=== PATIENT | male | born 1995 | race Two or more races ===

== ENCOUNTER 2016-11-10 15:13 | Emergency (ER) | payer SELFPAY ==
[2016-11-10 15:19] VITALS: BP 128/56; PULSE 73; TEMP 98.8; BMI 32.6
== END 2016-11-10 17:49 | disposition left against medical advice (07) ==
LOC: JER 15:13
DX: Z53.21 Procedure and treatment not carried out due to patient leaving prior to being seen by health care provider (principal)
CPT/HCPCS: 99281-25

== ENCOUNTER 2016-11-11 07:22 | Inpatient (IN) | payer OTHER ==
[2016-11-11 07:43] VITALS: BMI 30.5
--- NOTE | 2016-11-11 08:09 | PDOC ---
History of Present Illness - General Chief Complaint: Pain, Acute Stated Complaint: ABD PAIN Time Seen by Provider: 11/11/16 07:59 History Source: Patient Exam Limitations: No Limitations - History of Present Illness Initial Comments: CHIEF COMPLAINT: 21 y/o afebrile male with no significant PMH c/o abdominal pain and diarrhea for the past 1 week. HISTORY OF PRESENT ILLNESS: The patient states the pain is constant but is worse with bowel movements. He denies fever, chills, n/v, CP, SOB, back pain, hematuria, dysuria. He hasn't taken anything for pain and doesn't have a doctor. Vital signs on arrival are within normal limits. REVIEW OF SYSTEMS: GENERAL/CONSTITUTIONAL: No fever/chills. No weakness. No weight change. HEAD, EYES, EARS, NOSE AND THROAT: No change in vision. No ear pain or discharge. No sore throat. CARDIOVASCULAR: No chest pain or shortness of breath. RESPIRATORY: No cough, wheezing, or hemoptysis. GASTROINTESTINAL: +abdominal pain and diarrhea. No nausea, vomiting. GENITOURINARY: No dysuria, frequency, or change in urination. MUSCULOSKELETAL: No joint or muscle swelling or pain. No neck or back pain. SKIN: No rash or easy bruising. NEUROLOGIC: No headache, vertigo, loss of consciousness, or loss of sensation. PHYSICAL EXAM: GENERAL: The patient is awake, alert, and fully oriented, in moderate discomfort , lying flat and holding the right side of his abdomen. HEAD: Normal with no signs of trauma. ENT: Pupils equal, round and reactive to light, extraocular movements intact, sclera anicteric, conjunctiva clear. Neck supple. LUNGS: Clear to auscultation bilaterally. Normal excursion. No respiratory distress or use of accessory muscles. CV: RRR, S1/S2, no MRG. Cap refill < 2 sec. ABDOMEN: Soft, non-distended, with exquisite TTP of RLQ with passive guarding. No rebound. +Psoas and obturator signs. Pain reproduced in RLQ when the patient jumps up and down. EXTREMITIES: Normal range of motion, no edema. NEUROLOGICAL: Normal speech, normal gait. CN II-XII grossly intact. PSYCH: Normal mood, normal affect. SKIN: Warm, dry, normal turgor, no rashes or lesions noted. Past History - Past Medical History Allergies/Adverse Reactions: Allergies Allergy/AdvReac Type Severity Reaction Status Date / Time No Known Allergies Allergy Verified 11/11/16 07:39 Home Medications: Ambulatory Orders NK [No Known Home Medication] 11/11/16 Other medical history: PT DENIES MEDICAL HX - Psycho/Social/Smoking Cessation Hx Anxiety: No Suicidal Ideation: No Smoking History: Never smoked Have you smoked in the past 12 months: No Hx Alcohol Use: Yes ("sometimes") Drug/Substance Use Hx: No Substance Use Type: None *Physical Exam - Vital Signs Last Vital Signs Temp Pulse Resp BP Pulse Ox 97.9 F 63 18 154/69 99 11/11/16 07:36 11/11/16 07:36 11/11/16 07:36 11/11/16 07:36 11/11/16 07:36 ED Treatment Course - LABORATORY CBC & Chemistry Diagram: 11/11/16 08:39 11/11/16 08:39 Medical Decision Making - Medical Decision Making A/P: 21 y/o male with RLQ pain and diarrhea for 1 week. Will r/o appendicitis. Plan is as follows: 1. Labs 2. UA 3. Insert IV 4. IV fluids 5. IV ofirmev 6. CT scan abd/pelvis CT scan abd/pelvis IMPRESSION: Acute appendicitis labs unremarkable UA normal Ordered IV Unasyn Spoke with the patient to inform him of the diagnosis and plan Spoke with Dr. Siddiqui who accepts admission to the hospital. Paged Dr. Arellano for surgery. Spoke with Dr. Arellano and he states he will come in today and try to take him to the ER today. *DC/Admit/Observation/Transfer Diagnosis at time of Disposition: Acute appendicitis Qualifiers: Acute appendicitis type: with localized peritonitis Qualified Code(s): K35.3 - Acute appendicitis with localized peritonitis - Discharge Dispostion Admit: Yes
[2016-11-11] MEDS ORDERED: SODIUM CHLORIDE 1,000 ML IV STA (08:15)
[2016-11-11] MEDS ORDERED: ACETAMINOPHEN 1000 MG/100 ML VIAL (NON FORMULARY) IVPB ONE (08:15)
[2016-11-11] MEDS ORDERED: ACETAMINOPHEN INJECTION 100 ML IVPB ONE (08:51)
[2016-11-11 09:22] LABS: BASOPHIL 0.4 % (0-2.0); EOSINOPHIL 0.6 % (0-4.5); MCHC 33.5 g/dl (32.0-35.9); MEAN CELL VOLUME 83.8 fl (80-96); MEAN PLT VOLUME 9.5 fl (7.5-11.1); NEUTROPHILS 70.6 % (42.8-82.8); PLATELET COUNT 179 K/MM3 (134-434); RDW 13.2 % (11.9-15.9); WHITE BLOOD COUNT 10.3 K/mm3 (4.0-10.0)
[2016-11-11 09:26] LABS: ALBUMIN 3.8 g/dl (3.4-5.0); ALK PHOS 125 U/L (45-117); ANION GAP 10 (8-16); BILIRUBIN,TOTAL 0.6 mg/dL (0.2-1.0); CALCIUM 8.7 mg/dL (8.5-10.1); CO2 27 mmol/L (21-32); COCKROFT - GAULT 196.24; CREATININE 0.8 mg/dL (0.7-1.3); GLUCOSE,RANDOM 87 mg/dL (74-106); SGOT/AST 18 U/L (15-37); SGPT/ALT 29 U/L (12-78); TOT PROT 7.3 g/dl (6.4-8.2)
[2016-11-11 09:47] LABS: URINE APPEARANCE CLEAR; URINE BILIRUBIN NEGATIVE (NEGATIVE); URINE BLOOD NEGATIVE (NEGATIVE); URINE COLOR STRAW; URINE GLUCOSE (UA) NEGATIVE (NEGATIVE); URINE KETONE NEGATIVE (NEGATIVE); URINE LEUK ESTERASE NEGATIVE (NEGATIVE); URINE NITRITE NEGATIVE (NEGATIVE); URINE PROTEIN NEGATIVE (NEGATIVE); URINE UROBILINOGEN NEGATIVE E.U./dl (0.2-1.0)
[2016-11-11 10:10] LABS: INR 1.11 (0.82-1.09); PROTHROMBIN TIME (PATIENT) 12.2 SEC (9.98-11.88)
[2016-11-11] MEDS ORDERED: AMPICILLIN NA/SULBACTAM NA 3 GM in SODIUM CHLORIDE 100 ML IVPB ONE (12:57)
[2016-11-11] MEDS ORDERED: ONDANSETRON 4 MG/2 ML VIAL IVPB PRN ×2 (13:51→16:56)
[2016-11-11] MEDS ORDERED: HYDROmorphone HCL CARPU-JECT 1 MG/1 ML DISP.SYRIN IVPB PRN (13:51)
[2016-11-11] MEDS ORDERED: D5-1/2NS+20 MEQ KCL - 1,000 ML IV SCH (14:00)
[2016-11-11] MEDS ORDERED: MIDAZOLAM HCL 2 MG/2 ML SINGLE DOSE VIAL ONE (15:04)
[2016-11-11] MEDS ORDERED: LIDOCAINE HCL/PF 2% SDV 5ML VIAL ONE (15:04)
[2016-11-11] MEDS ORDERED: PROPOFOL 20 ML ONE (15:04)
[2016-11-11] MEDS ORDERED: ROCURONIUM BROMIDE 50 MG/5 ML VIAL ONE (15:04)
[2016-11-11] MEDS ORDERED: SENNOSIDES 8.6MG TABLET (FP) PO PRN (15:11)
[2016-11-11] MEDS ORDERED: BUPIVACAINE HCL/PF 0.5% (5MG/ML) 10 ML VIAL ONE (15:12)
--- NOTE | 2016-11-11 15:19 | HP ---
CHIEF COMPLAINT: LLQ abdominal pain PCP: HISTORY OF PRESENT ILLNESS: This is a 21 year old male with no significant past medical history, presents with a one week history of RLQ abdominal pain and diarrhea x 1day. Denies fever , chills, n.v. CT notable for acute appendicitis Denies surgical history Family history : MOther diabetes and hypertension Denies smoking , drinking, alcohol ER course was notable for: (1) CT acute appendicits (2)wbc elevated (3) Recent Travel: no PAST MEDICAL HISTORY: none PAST SURGICAL HISTORY: no Social History: Smoking:no Alcohol:no Drugs: no Family History:MOther diabetes, htn Allergies No Known Allergies Allergy (Verified 11/11/16 07:39) HOME MEDICATIONS: Home Medications Medication Instructions Recorded NK [No Known Home Medication] 11/11/16 REVIEW OF SYSTEMS CONSTITUTIONAL: Absent: fever, chills, diaphoresis, generalized weakness, malaise, loss of appetite, weight change HEENT: Absent: rhinorrhea, nasal congestion, throat pain, throat swelling, difficulty swallowing, mouth swelling, ear pain, eye pain, visual changes CARDIOVASCULAR: Absent: chest pain, syncope, palpitations, irregular heart rate, lightheadedness , peripheral edema RESPIRATORY: Absent: cough, shortness of breath, dyspnea with exertion, orthopnea, wheezing, stridor, hemoptysis GASTROINTESTINAL: Positive: abdominal pain, diarrhea Absent: abdominal distension, nausea, vomiting, constipation, melena, hematochezia GENITOURINARY: Absent: dysuria, frequency, urgency, hesitancy, hematuria, flank pain, genital pain MUSCULOSKELETAL: Absent: myalgia, arthralgia, joint swelling, back pain, neck pain SKIN: Absent: rash, itching, pallor HEMATOLOGIC/IMMUNOLOGIC: Absent: easy bleeding, easy bruising, lymphadenopathy, frequent infections ENDOCRINE: Absent: unexplained weight gain, unexplained weight loss, heat intolerance, cold intolerance NEUROLOGIC: Absent: headache, focal weakness or paresthesias, dizziness, unsteady gait, seizure, mental status changes, bladder or bowel incontinence PSYCHIATRIC: Absent: anxiety, depression, suicidal or homicidal ideation, hallucinations. PHYSICAL EXAMINATION Vital Signs - 24 hr 11/11/16 14:55 Temperature 98.9 F Pulse Rate [ 77 Right] Respiratory 20 Rate Blood Pressure 139/79 [Left Arm] O2 Sat by Pulse 98 Oximetry (%) GENERAL: Awake, alert, and fully oriented, in no acute distress. HEAD: Normal with no signs of trauma. EYES: Pupils equal, round and reactive to light, extraocular movements intact, sclera anicteric, conjunctiva clear. No lid lag. EARS, NOSE, THROAT: Ears normal, nares patent, oropharynx clear without exudates. Moist mucous membranes. NECK: Normal range of motion, supple without lymphadenopathy, JVD, or masses. LUNGS: Breath sounds equal, clear to auscultation bilaterally. No wheezes, and no crackles. No accessory muscle use. HEART: Regular rate and rhythm, normal S1 and S2 without murmur, rub or gallop. ABDOMEN: Soft, nontender, not distended, normoactive bowel sounds, no guarding, no rebound, no masses. No hepatomegaly or splenomegaly. MUSCULOSKELETAL: Normal range of motion at all joints. No bony deformities or tenderness. No CVA tenderness. UPPER EXTREMITIES: 2+ pulses, warm, well-perfused. No cyanosis. No clubbing. No peripheral edema. LOWER EXTREMITIES: 2+ pulses, warm, well-perfused. No calf tenderness. No peripheral edema. NEUROLOGICAL: Cranial nerves II-XII intact. Normal speech. Normal gait. PSYCHIATRIC: Cooperative. Good eye contact. Appropriate mood and affect. SKIN: Warm, dry, normal turgor, no rashes or lesions noted, normal capillary refill. CT abdomen and pelvis: IMPRESSION: Findings consistent with acute appendicitis without evidence of extraluminal air or abscess formation. There is significant stranding/edema around the appendiceal tip with a small amount of free fluid in the right hemipelvis. Apparent thickening of the urinary bladder likely due to inadequate distention. Probable scattered diverticula in the colon without evidence of acute diverticulitis. ASSESSMENT/PLAN: This is a 21 yea old male with no PMHx, presents towth one weel hx RLQ pain and diarrhea x 1 day. Admitted for acute appendicitis. #acute appendicitis: -taken to OR -Dr. Arellano doing surgery -was npo -IVF -pain controlled FEN: Fluids: D5 1/2 ns Electrolytes : wnl Diet: npo VTE prophylaxis: none right now Disposition: OR today Visit type - Emergency Visit Emergency Visit: Yes ED Registration Date: 11/11/16 Care time: The patient presented to the Emergency Department on the above date and was hospitalized for further evaluation of their emergent condition. - New Patient This patient is new to me today: Yes Date on this admission: 11/11/16 - Critical Care Critical Care patient: No
--- NOTE | 2016-11-11 15:39 | CONSULT ---
Consult Consult Specialty:: Surgery Reason for Consultation:: Acute appendicitis - History of Present Illness History of Present Illness: 21 male with abdominal pain x 1 week No vomiting Denies fevers No diarrhea - History Source History Provided By: Patient, Medical Record Limitations to Obtaining History: Language Barrier - Alcohol/Substance Use Hx Alcohol Use: Yes ("sometimes") - Smoking History Smoking history: Never smoked Have you smoked in the past 12 months: No Home Medications - Allergies Allergies/Adverse Reactions: Allergies Allergy/AdvReac Type Severity Reaction Status Date / Time No Known Allergies Allergy Verified 11/11/16 07:39 - Home Medications Home Medications: Ambulatory Orders NK [No Known Home Medication] 11/11/16 Family Disease History - Family Disease History Family History: Unremarkable Review of Systems - Review of Systems Constitutional: denies: Chills, Fever HENT: reports: No Symptoms Cardiovascular: denies: Chest Pain Respiratory: denies: Cough Gastrointestinal: reports: Abdominal Pain (RLQ). denies: Diarrhea, Vomiting Genitourinary: reports: No Symptoms Neurological: denies: Change in LOC Pain Intensity: 6 Physical Exam Vital Signs: Vital Signs Temperature 98.9 F 11/11/16 14:55 Pulse Rate 77 11/11/16 14:55 Respiratory Rate 20 11/11/16 14:55 Blood Pressure 139/79 11/11/16 14:55 O2 Sat by Pulse Oximetry (%) 98 11/11/16 14:55 Constitutional: Yes: Calm Neck: Yes: Supple Cardiovascular: Yes: Regular Rate and Rhythm Respiratory: Yes: Regular Gastrointestinal: Yes: Soft, Tenderness (RLQ), Tenderness, Rebound (Local rebound RLQ) Extremities: Yes: WNL Neurological: Yes: Alert, Oriented Labs: CBC, BMP 11/11/16 08:39 11/11/16 08:39 Imaging - Results Cat Scan: Report Reviewed, Image Reviewed Problem List - Problems (1) Acute appendicitis Code(s): K35.80 - UNSPECIFIED ACUTE APPENDICITIS Qualifiers: Acute appendicitis type: with localized peritonitis Qualified Code(s): K35.3 - Acute appendicitis with localized peritonitis Assessment/Plan 21 male with acute appendicitis NPO IV fluids Antibiotics For laparoscopic possible open appendectomy Risks and benefits explained Understands and agrees
[2016-11-11] MEDS ORDERED: DEXAMETHASONE SOD PHOSPHATE 4 MG/1 ML VIAL ONE (15:48)
[2016-11-11] MEDS ORDERED: BUPIVACAINE HCL/PF 0.5% (5MG/ML) 10 ML VIAL IJ ONE (16:14)
[2016-11-11] MEDS ORDERED: GLYCOPYRROLATE 0.2 MG/1 ML VIAL ONE ×3 (16:20→16:28)
[2016-11-11] MEDS ORDERED: NEOSTIGMINE METHYLSULFATE 0.5 MG/ML - 10 ML MDV ONE (16:20)
--- NOTE | 2016-11-11 16:34 | OP ---
Operative Note - Note: Operative Date: 11/11/16 Pre-Operative Diagnosis: Acute appendicitis Operation: Laparoscopic appendectomy Findings: Perforated appendix with purulent discharge Post-Operative Diagnosis: Other (Perforated appendicitis with pus) Surgeon: Wilmer Arellano Anesthesia: General Specimens Removed: Appendix Estimated Blood Loss (mls): 5 Operative Report Dictated: Yes
[2016-11-11] MEDS ORDERED: PROMETHAZINE HCL 25 MG/1 ML VIAL IVPUSH PRN (16:46)
[2016-11-11] MEDS ORDERED: ONDANSETRON 4 MG/2 ML VIAL IVPUSH PRN (16:46)
[2016-11-11] MEDS ORDERED: oxyCODONE HCL 5 MG TABLET PO PRN (16:46)
--- NOTE | 2016-11-11 16:58 | SPEC ---
DATE OF OPERATION: 11/11/2016 SURGEON: Toro Arellano MD PREOPERATIVE DIAGNOSIS: Acute appendicitis. POSTOPERATIVE DIAGNOSIS: Perforated acute appendicitis with purulent discharge. PROCEDURE: Laparoscopic appendectomy. FINDINGS: Perforated appendicitis with purulent discharge. SPECIMEN: Appendix. ESTIMATED BLOOD LOSS: 5 mL. DRAINS: None. ANESTHESIA: ET. REASON FOR PROCEDURE: This is a 21-year-old gentleman who presented to the hospital with abdominal pain. On history, he was noted to have right lower quadrant pain for [address], he was found to have evidence of acute appendicitis. RISKS AND BENEFITS: The risks and benefits were explained for a laparoscopic, possible open appendectomy. These included bleeding, infection, hernia, TN, DVT , PE, injury to surrounding structures including the liver, colon, bowel, bladder, ureter, vessel injury, nerve injury, abscess formation, staple line leak, staple line dehiscence as some of the possible complications. The patient understood and signed informed consent. DESCRIPTION OF PROCEDURE: The patient was placed supine on the operating room table. The patient underwent general endotracheal intubation. A Krishnamurthy catheter was inserted by the nursing staff. The abdomen was prepped and draped in the usual sterile fashion. A timeout was performed. A periumbilical incision was made and a 5-mm optical trocar was inserted under direct visualization with the laparoscope. Pneumoperitoneum was then established. Subsequently, a 5-mm trocar was placed in the suprapubic area and a 12-mm trocar placed in the left lower quadrant. The patient was placed in Trendelenburg right side up position. After meticulous dissection, the appendix was identified. The appendix was freed from its surrounding structures and the appendix was retracted to the anterior abdominal wall. There was purulent discharge noted from the tip of the appendix consistent with a perforated appendicitis. Copious irrigation and suction were performed until clear. The base of the appendix was identified. A window was created within the mesentery near the base of the appendix. The appendix at its base was stapled using a laparoscopic Endo-GENO stapler with a white load. The mesoappendix was then transected using a laparoscopic Endo-GENO stapler with a white load. The appendix was placed in an EndoCatch bag. Inspection of both staple lines was identified. The staple line at the base of the appendix was noted to be fully intact. Hemostasis was noted at the staple line of the mesoappendix. Copious irrigation and suction was performed. The appendix was removed from the abdominal cavity and sent off the operative field as specimen. The patient was then placed in left side up position. The 12-mm trocar was removed. The fascia at this site was closed using a 0 Vicryl suture with a Hua-Alison device. The patient was then placed supine. Pneumoperitoneum was desufflated and all further trocars were removed. All incision sites were irrigated and Marcaine was injected at all incision sites. The fascial suture was secured. All incision sites were closed using 4- 0 Biosyn. Sterile dressings were applied. The patient tolerated the procedure well. The Krishnamurthy catheter was removed and the patient was transferred to the recovery room in stable condition. TORO ARELLANO M.D. [id number] MTDCarlee
[2016-11-11] MEDS ORDERED: HYDROmorphone HCL CARPU-JECT 2 MG/1 ML DISP.SYRIN ONE (17:07)
[2016-11-11] MEDS ORDERED: HYDROmorphone HCL CARPU-JECT 2 MG/1 ML DISP.SYRIN IVPB ONE (17:12)
--- NOTE | 2016-11-11 17:24 | PN ---
Teaching Attending Note Name of Resident: Paty Barragan ATTENDING PHYSICIAN STATEMENT I saw and evaluated the patient. I reviewed the resident's note and discussed the case with the resident. I agree with the resident's findings and plan as documented. SUBJECTIVE: This is a 21-year-old man with no significant medical history who comes to the ER complaining of RLQ abdominal pain x 1 week and diarrhea since yesterday. He denies fever, chills, nausea, vomiting, melena, rectal bleeding. OBJECTIVE: Initial Vital Signs Temp Pulse Resp BP Pulse Ox 97.9 F 63 18 154/69 99 11/11/16 07:36 11/11/16 07:36 11/11/16 07:36 11/11/16 07:36 11/11/16 07:36 HEART: S1 S2, RRR LUNGS: Clear ABDOMEN: Soft, non-distended, (+) RLQ tenderness. Normal BS EXTREMITIES: No edema ASSESSMENT AND PLAN: This is a healthy 21-year-old man who presented today with RLQ pain and diarrhea. CT shows acute appendicitis. 1. Acute appendicitis - Unasyn given in ER - NPO - IV fluid - Pain control - Surgery consult
[2016-11-11] MEDS: D5-1/2NS+20 MEQ KCL - 1,000 ML IV SCH (18:30)
[2016-11-11] MEDS ORDERED: AMPICILLIN NA/SULBACTAM NA 3 GM in SODIUM CHLORIDE 100 ML IVPB SCH (21:00)
[2016-11-11] MEDS: AMPICILLIN NA/SULBACTAM NA 3 GM in SODIUM CHLORIDE 100 ML IVPB SCH (21:12)
[2016-11-11] MEDS: HYDROmorphone HCL CARPU-JECT 1 MG/1 ML DISP.SYRIN IVPB PRN (22:14)
[2016-11-12] MEDS: AMPICILLIN NA/SULBACTAM NA 3 GM in SODIUM CHLORIDE 100 ML IVPB SCH ×4 (03:41→20:34)
[2016-11-12] MEDS: D5-1/2NS+20 MEQ KCL - 1,000 ML IV SCH ×3 (04:02→17:37)
[2016-11-12 07:43] LABS: BASOPHIL 0.1 % (0-2.0); MCH 28.3 pg (25.7-33.7); MCHC 33.9 g/dl (32.0-35.9); MEAN CELL VOLUME 83.5 fl (80-96); MEAN PLT VOLUME 9.3 fl (7.5-11.1); NEUTROPHILS 76.9 % (42.8-82.8); PLATELET COUNT 179 K/MM3 (134-434); RDW 12.8 % (11.9-15.9); WHITE BLOOD COUNT 10.5 K/mm3 (4.0-10.0)
[2016-11-12 08:13] LABS: ALBUMIN 3.2 g/dl (3.4-5.0); ANION GAP 10 (8-16); CALCIUM 8.4 mg/dL (8.5-10.1); CO2 26 mmol/L (21-32); CREATININE 0.8 mg/dL (0.7-1.3); GLUCOSE,RANDOM 115 mg/dL (74-106); SGOT/AST 14 U/L (15-37); SGPT/ALT 23 U/L (12-78)
[2016-11-12 08:15] LABS: ALK PHOS 105 U/L (45-117); BILIRUBIN,TOTAL 0.6 mg/dL (0.2-1.0); TOT PROT 6.3 g/dl (6.4-8.2)
[2016-11-12] MEDS ORDERED: PT OWN MED DRAWER 7, Y5N ONE ×3 (08:36→20:25)
[2016-11-12] MEDS: HYDROmorphone HCL CARPU-JECT 1 MG/1 ML DISP.SYRIN IVPB PRN ×3 (09:57→21:41)
--- NOTE | 2016-11-12 11:01 | PN ---
Progress Note (short form) - Note Progress Note: POD 1 Laparoscopic appendectomy for perforated appendicitis Pain controlled Tolerating diet Vital Signs Period Temp Pulse Resp BP Sys/Valdez Pulse Ox Last 24 Hr 98 F-98.9 F 60-82 16-20 103-146/52-80 98-100 Abd soft, incisional tenderness CBC, BMP 11/12/16 06:20 11/12/16 06:20 IV antibiotics x 48 hours If has no fevers and WBC remains normal can discharge home on 11/1416 on PO antibiotics Problem List - Problems (1) Acute appendicitis Code(s): K35.80 - UNSPECIFIED ACUTE APPENDICITIS Qualifiers: Acute appendicitis type: with localized peritonitis Qualified Code(s): K35.3 - Acute appendicitis with localized peritonitis
--- NOTE | 2016-11-12 15:04 | PN ---
Physical Exam: SUBJECTIVE: Patient seen and examined OBJECTIVE: Vital Signs Period Temp Pulse Resp BP Sys/Valdez Pulse Ox Last 24 Hr 98 F-98.8 F 50-82 16-20 103-146/52-80 98-100 GENERAL: The patient is awake, alert, and fully oriented, in no acute distress. HEAD: Normal with no signs of trauma. EYES: PERRL, extraocular movements intact, sclera anicteric, conjunctiva clear. No ptosis. ENT: Ears normal, nares patent, oropharynx clear without exudates, moist mucous membranes. NECK: Trachea midline, full range of motion, supple. LUNGS: Breath sounds equal, clear to auscultation bilaterally, no wheezes, no crackles, no accessory muscle use. HEART: Regular rate and rhythm, S1, S2 without murmur, rub or gallop. ABDOMEN: Soft, nontender, nondistended, normoactive bowel sounds, no guarding, no rebound, no hepatosplenomegaly, no masses. EXTREMITIES: 2+ pulses, warm, well-perfused, no edema. NEUROLOGICAL: Cranial nerves II through XII grossly intact. Normal speech, gait not observed. PSYCH: Normal mood, normal affect. SKIN: Warm, dry, normal turgor, no rashes or lesions noted Laboratory Results - last 24 hr 11/12/16 11/12/16 06:20 06:20 WBC 10.5 H RBC 5.12 Hgb 14.5 Hct 42.7 MCV 83.5 MCHC 33.9 RDW 12.8 Plt Count 179 MPV 9.3 Neutrophils % 76.9 Lymphocytes % 16.1 D Monocytes % 6.9 Eosinophils % 0.0 D Basophils % 0.1 Sodium 140 Potassium 4.2 Chloride 104 Carbon Dioxide 26 Anion Gap 10 BUN 7 D Creatinine 0.8 Creat Clearance w eGFR > 60 Random Glucose 115 H D Calcium 8.4 L Total Bilirubin 0.6 AST 14 L D ALT 23 D Alkaline Phosphatase 105 Total Protein 6.3 L Albumin 3.2 L Active Medications Generic Name Dose Route Start Last Admin Trade Name Freq PRN Reason Stop Dose Admin Hydromorphone HCl 1 mg 11/11/16 16:56 11/12/16 09:57 Dilaudid Injection - IVPB 1 mg Q4H PRN Administration PAIN Ampicillin Sodium/Sulbactam 100 mls @ 200 mls/hr 11/11/16 21:00 11/12/16 14:10 Sodium 3 gm/ Sodium Chloride IVPB 200 mls/hr Q6H-IV JAG Administration Potassium Chloride/Dextrose/Sod Cl 1,000 mls @ 125 mls/hr 11/11/16 16:56 11:56 D5-1/2ns+20 Meq Kcl - IV 125 mls/hr ASDIR JAG Administration Ondansetron HCl 4 mg 11/11/16 16:56 Zofran Injection IVPB Q4H PRN 0 Oxycodone HCl 10 mg 11/11/16 16:46 11/11/16 19:06 Roxicodone - PO 11/12/16 16:45 10 mg Q4H PRN Administration SEVERE PAIN CT abdomen and pelvis: IMPRESSION: Findings consistent with acute appendicitis without evidence of extraluminal air or abscess formation. There is significant stranding/edema around the appendiceal tip with a small amount of free fluid in the right hemipelvis. Apparent thickening of the urinary bladder likely due to inadequate distention. Probable scattered diverticula in the colon without evidence of acute diverticulitis. ASSESSMENT/PLAN: This is a 21 yea old male with no PMHx, presents to ER with one week hx RLQ pain and diarrhea x 1 day. Admitted for acute appendicitis. #acute appendicitis: POD #1 appendectomy -appendix perforated -cont IV antibiotic Unasyn -pain controlled FEN: Fluids:po Electrolytes : wnl Diet: regular VTE prophylaxis: low risk; ambulate Disposition:dc after iv antibiotic tomorrow Visit type - Emergency Visit Emergency Visit: Yes ED Registration Date: 11/11/16 Care time: The patient presented to the Emergency Department on the above date and was hospitalized for further evaluation of their emergent condition. - New Patient This patient is new to me today: No - Critical Care Critical Care patient: No
--- NOTE | 2016-11-12 16:10 | PN ---
Teaching Attending Note Name of Resident: Paty Barragan ATTENDING PHYSICIAN STATEMENT I saw and evaluated the patient. I reviewed the resident's note and discussed the case with the resident. I agree with the resident's findings and plan as documented. SUBJECTIVE: No complaints. Tolerating diet. Pain is controlled. OBJECTIVE: Vital Signs Period Temp Pulse Resp BP Sys/Valdez Pulse Ox Last 24 Hr 98 F-98.8 F 50-82 16-20 103-146/52-80 98-100 HEART: S1 S2, RRR LUNGS: Clear ABDOMEN: Soft, non-tender, non-distended, normal BS EXTREMITIES: No edema ASSESSMENT AND PLAN: This is a healthy 21-year-old man who presented today with RLQ pain and diarrhea. CT shows acute appendicitis. 1. Acute appendicitis, perforated - s/p laparoscopic appendectomy 11/11 - Continue Unasyn
[2016-11-13] MEDS ORDERED: PT OWN MED DRAWER 7, Y5N ONE ×4 (02:52→19:58)
[2016-11-13] MEDS: AMPICILLIN NA/SULBACTAM NA 3 GM in SODIUM CHLORIDE 100 ML IVPB SCH ×4 (02:54→20:17)
[2016-11-13] MEDS: D5-1/2NS+20 MEQ KCL - 1,000 ML IV SCH ×2 (06:48→18:25)
--- NOTE | 2016-11-13 10:06 | PN ---
Progress Note (short form) - Note Progress Note: No acute events Pain controlled Tolerating diet Vital Signs Period Temp Pulse Resp BP Sys/Valdez Pulse Ox Last 24 Hr 98.1 F-99.2 F 50-62 17-19 99-133/47-78 98 Abd soft, wounds c/d/i CBC, BMP 11/12/16 06:20 11/12/16 06:20 Continue antibiotics Can discharge in am if remains stable on PO antibiotics Problem List - Problems (1) Acute appendicitis Code(s): K35.80 - UNSPECIFIED ACUTE APPENDICITIS Qualifiers: Acute appendicitis type: with localized peritonitis Qualified Code(s): K35.3 - Acute appendicitis with localized peritonitis
[2016-11-13] MEDS: HYDROmorphone HCL CARPU-JECT 1 MG/1 ML DISP.SYRIN IVPB PRN (10:29)
--- NOTE | 2016-11-13 12:29 | PATH ---
Surgical Pathology Report Patient Name: ANGELA BLUM Med. Rec. #: [id number] /Age/Gender: 1995 (Age: 21) / M Account: [id number] Location: [address] [place] [address]/[facility] Taken: 11/11/2016 Received: 11/12/2016 Reported: 11/13/2016 Physicians: Wilmer Arellano M.D. Specimen(s) Received APPENDIX Clinical History Acute appendicitis Final Diagnosis APPENDIX, APPENDECTOMY: MARKED ACUTE SUPPURATIVE APPENDICITIS AND PERIAPPENDICITIS WITH FOCAL ABSCESS FORMATION. Electronically Signed Tejas Glasgow M.D. Gross Description Received in formalin, labeled "appendix" is a 7 cm in length vermiform appendix with a stapled margin of resection and moderate attached fat. The serosa is gallo-prabhakar with attached exudate. Sectioning reveals gallo pus well as a surrounding pus collection. The wall of the appendix averages 0.2 cm in thickness. Professor Of Family Medicine sections are submitted in 2 cassettes as follows: 1-bisected distal tip; 3-[id number]. /11/12/2016 [facility]11/12/2016
--- NOTE | 2016-11-13 16:54 | PN ---
Physical Exam: SUBJECTIVE: Patient seen and examined OBJECTIVE: Vital Signs Period Temp Pulse Resp BP Sys/Valdez Pulse Ox Last 24 Hr 98.1 F-99.2 F 53-72 17-20 99-125/47-78 95-98 GENERAL: The patient is awake, alert, and fully oriented, in no acute distress. HEAD: Normal with no signs of trauma. EYES: PERRL, extraocular movements intact, sclera anicteric, conjunctiva clear. No ptosis. ENT: Ears normal, nares patent, oropharynx clear without exudates, moist mucous membranes. NECK: Trachea midline, full range of motion, supple. LUNGS: Breath sounds equal, clear to auscultation bilaterally, no wheezes, no crackles, no accessory muscle use. HEART: Regular rate and rhythm, S1, S2 without murmur, rub or gallop. ABDOMEN: Soft, nontender, nondistended, normoactive bowel sounds, no guarding, no rebound, no hepatosplenomegaly, no masses. incision clean dry in tact, no swelling or erythema EXTREMITIES: 2+ pulses, warm, well-perfused, no edema. NEUROLOGICAL: Cranial nerves II through XII grossly intact. Normal speech, gait not observed. PSYCH: Normal mood, normal affect. SKIN: Warm, dry, normal turgor, no rashes or lesions noted Active Medications Generic Name Dose Route Start Last Admin Trade Name Freq PRN Reason Stop Dose Admin Hydromorphone HCl 1 mg 11/11/16 16:56 11/13/16 10:29 Dilaudid Injection - IVPB 1 mg Q4H PRN Administration PAIN Ampicillin Sodium/Sulbactam 100 mls @ 200 mls/hr 11/11/16 21:00 11/13/16 15:02 Sodium 3 gm/ Sodium Chloride IVPB 200 mls/hr Q6H-IV JAG Administration Potassium Chloride/Dextrose/Sod Cl 1,000 mls @ 125 mls/hr 11/11/16 16:56 06:48 D5-1/2ns+20 Meq Kcl - IV 125 mls/hr ASDIR JAG Administration Ondansetron HCl 4 mg 11/11/16 16:56 Zofran Injection IVPB Q4H PRN 0 CT abdomen and pelvis: IMPRESSION: Findings consistent with acute appendicitis without evidence of extraluminal air or abscess formation. There is significant stranding/edema around the appendiceal tip with a small amount of free fluid in the right hemipelvis. Apparent thickening of the urinary bladder likely due to inadequate distention. Probable scattered diverticula in the colon without evidence of acute diverticulitis. ASSESSMENT/PLAN: This is a 21 yea old male with no PMHx, presents to ER with one week hx RLQ pain and diarrhea x 1 day. Admitted for acute appendicitis. #acute appendicitis: POD #2 appendectomy -appendix perforated -cont IV antibiotic Unasyn -pain controlled -d/c on po antibiotics levaquin and flagyl x 7 days FEN: Fluids:po Electrolytes : wnl Diet: regular VTE prophylaxis: low risk; ambulate Disposition:dc after iv antibiotic tomorrow; if white count trends down Visit type - Emergency Visit Emergency Visit: Yes ED Registration Date: 11/11/16 Care time: The patient presented to the Emergency Department on the above date and was hospitalized for further evaluation of their emergent condition. - New Patient This patient is new to me today: No - Critical Care Critical Care patient: No
--- NOTE | 2016-11-13 17:12 | PN ---
Teaching Attending Note Name of Resident: Paty Barragan ATTENDING PHYSICIAN STATEMENT I saw and evaluated the patient. I reviewed the resident's note and discussed the case with the resident. I agree with the resident's findings and plan as documented. SUBJECTIVE: No complaints. OBJECTIVE: Vital Signs Period Temp Pulse Resp BP Sys/Valdez Pulse Ox Last 24 Hr 98.1 F-99.2 F 53-72 17-20 99-125/47-78 95-98 HEART: S1 S2, RRR LUNGS: Clear ABDOMEN: Soft, non-tender, non-distended, normal BS EXTREMITIES: No edema ASSESSMENT AND PLAN: This is a healthy 21-year-old man who presented today with RLQ pain and diarrhea. CT shows acute appendicitis. 1. Acute appendicitis, perforated - s/p laparoscopic appendectomy 11/11 - Continue Unasyn - Expect discharge tomorrow
[2016-11-14] MEDS: AMPICILLIN NA/SULBACTAM NA 3 GM in SODIUM CHLORIDE 100 ML IVPB SCH ×2 (02:50→08:39)
[2016-11-14] MEDS: D5-1/2NS+20 MEQ KCL - 1,000 ML IV SCH (03:30)
[2016-11-14] MEDS ORDERED: PT OWN MED DRAWER 7, Y5N ONE (08:38)
[2016-11-14 09:18] LABS: BASOPHIL 0.5 % (0-2.0); EOSINOPHIL 1.6 % (0-4.5); MCH 28.6 pg (25.7-33.7); MCHC 34.5 g/dl (32.0-35.9); MEAN PLT VOLUME 8.8 fl (7.5-11.1); NEUTROPHILS 60.8 % (42.8-82.8); PLATELET COUNT 197 K/MM3 (134-434); WHITE BLOOD COUNT 6.4 K/mm3 (4.0-10.0)
[2016-11-14 11:24] VITALS: BP 117/61; PULSE 62; TEMP 98.2
--- NOTE | 2016-11-14 14:01 | PN ---
Teaching Attending Note Name of Resident: Paty Barragan ATTENDING PHYSICIAN STATEMENT I saw and evaluated the patient. I reviewed the resident's note and discussed the case with the resident. I agree with the resident's findings and plan as documented. SUBJECTIVE: No complaints. OBJECTIVE: Vital Signs Period Temp Pulse Resp BP Sys/Valdez Pulse Ox Last 24 Hr 98.2 F-98.4 F 62-72 16-20 117-123/48-69 HEART: S1 S2, RRR LUNGS: Clear ABDOMEN: Soft, non-tender, non-distended, normal BS EXTREMITIES: No edema ASSESSMENT AND PLAN: This is a healthy 21-year-old man who presented today with RLQ pain and diarrhea. CT shows acute appendicitis. 1. Acute appendicitis, perforated - s/p laparoscopic appendectomy 11/11 - OK for discharge on Levaquin, Flagyl x 7 days
--- NOTE | 2016-11-14 14:49 | DS ---
Physical Exam: SUBJECTIVE: Patient seen and examined, no pain, no swelling, no complaints. WBC wnl. Afebrile. OBJECTIVE: Vital Signs Period Temp Pulse Resp BP Sys/Valdez Pulse Ox Last 24 Hr 98.2 F-98.4 F 62-72 16-20 117-123/48-69 PHYSICAL EXAM GENERAL: The patient is awake, alert, and fully oriented, in no acute distress. HEAD: Normal with no signs of trauma. EYES: PERRL, extraocular movements intact, sclera anicteric, conjunctiva clear. ENT: Ears normal, nares patent, oropharynx clear without exudates, moist mucous membranes. NECK: Trachea midline, full range of motion, supple. LUNGS: Breath sounds equal, clear to auscultation bilaterally, no wheezes, no crackles, no accessory muscle use. HEART: Regular rate and rhythm, S1, S2 without murmur, rub or gallop. ABDOMEN: Soft, nontender, nondistended, normoactive bowel sounds, no guarding, no rebound, no hepatosplenomegaly, no masses. incision clean dry in tact, no swelling, erythema EXTREMITIES: 2+ pulses, warm, well-perfused, no edema. NEUROLOGICAL: Cranial nerves II through XII grossly intact. Normal speech, gait not observed. PSYCH: Normal mood, normal affect. SKIN: Warm, dry, normal turgor, no rashes or lesions noted. LABS Laboratory Results - last 24 hr 11/14/16 07:45 WBC 6.4 D RBC 5.21 Hgb 14.9 Hct 43.2 MCV 83.0 MCHC 34.5 RDW 13.0 Plt Count 197 MPV 8.8 Neutrophils % 60.8 D Lymphocytes % 28.8 D Monocytes % 8.3 Eosinophils % 1.6 D Basophils % 0.5 D HOSPITAL COURSE: Date of Admission:11/11/16 Date of Discharge: 11/14/16 CT abdomen and pelvis: IMPRESSION: Findings consistent with acute appendicitis without evidence of extraluminal air or abscess formation. There is significant stranding/edema around the appendiceal tip with a small amount of free fluid in the right hemipelvis. Apparent thickening of the urinary bladder likely due to inadequate distention. Probable scattered diverticula in the colon without evidence of acute diverticulitis. ASSESSMENT/PLAN: This is a 21 yea old male with no PMHx, presents to ER with one week hx RLQ pain and diarrhea x 1 day. Admitted for acute appendicitis. #acute appendicitis: POD #3 appendectomy -appendix perforated -had 3 days of IV Unasyn -d/c'd on po antibiotics levaquin and flagyl x 7 days -follow up with surgery and primary Minutes to complete discharge: 35 Discharge Summary Reason For Visit: ACUTE APPENDICITIS Condition: Improved - Instructions Diet, Activity, Other Instructions: Mr. Sesay, you have been treated for acute appendicitis. We would like you to take the prescribed medication as directed. Please follow up wtih your primary with in one week. Discuss need to follow up with surgery team with primary. If you experience any fever, chills, worsening pain, please return to the emergency room. Referrals: Wilmer Arellano MD [Staff Physician] - Disposition: HOME - Home Medications Comprehensive Discharge Medication List: Ambulatory Orders Docusate Sodium [Colace -] 100 mg PO TID #90 capsule 11/11/16 Levofloxacin [Levaquin -] 500 mg PO DAILY 7 Days 11/14/16 Metronidazole [Flagyl -] 500 mg PO TID #21 tablet 11/14/16 Oxycodone HCl/Acetaminophen [Percocet 5-325 mg Tablet] 1 - 2 tab PO Q6H #28 tab MDD 4 11/14/16 This patient is new to me today: No Emergency Visit: Yes ED Registration Date: 11/11/16 Care time: The patient presented to the Emergency Department on the above date and was hospitalized for further evaluation of their emergent condition. Critical Care patient: No - Discharge Referral Referred to [facility] No
== END 2016-11-14 14:01 | disposition home or self-care (01) | DRG 225 ==
LOC: JER 07:22 → JERBED 13:45 → J6S 18:26
PROVIDERS: ADMIT Internal Medicine; ATTEND Internal Medicine
PROC: 0DTJ4ZZ Resection of Appendix, Percutaneous Endoscopic Approach (ICD-10-PCS; principal; 2016-11-11 15:30)
DX: K35.2 Acute appendicitis with generalized peritonitis (principal); R19.7 Diarrhea, unspecified
CPT/HCPCS: 36415; 74177-TC; 80053; 81003; 83605; 85025; 85610; 86850; 86900; 86901; 87040; 88304-TC; 94760; 99285-25

== ENCOUNTER 2022-04-15 10:10 | Emergency (ER) | payer OTHER ==
[2022-04-15 10:17] VITALS: BP 136/74; PULSE 68; RESP 17; TEMP 98.2; BMI 35.2
== END 2022-04-15 13:47 | disposition home or self-care (01) ==
LOC: JERFT 10:10
DX: S02.2XXA Fracture of nasal bones, initial encounter for closed fracture (principal); W22.8XXA Striking against or struck by other objects, initial encounter
CPT/HCPCS: 70450-TC; 70486-TC; 99284-25